=== PATIENT | female | born 1940 | race Caucasian/White ===

== ENCOUNTER 2021-08-28 20:16 | Emergency (ER) | payer OTHER, MEDICARE ==
[~2021-08-28] VITALS: Ht 162.6 cm; Wt 74.8 kg
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
--- NOTE | 2021-08-28 20:30 | NUR ---
Received patient to ER via EMS w/ c/o back pain and spasm which is chronic and normally relieved w/ a muscle relaxer but patient had a glass of wine and did not want to mix. Introduced self to patient, positioned for comfort. bed to low position sr up, continue to monitor. Patient resting quietly. No acute distress noted. Vital signs within normal range.
--- NOTE | 2021-08-28 20:30 | NUR ---
Patient to ER bed 2 to gown for evaluation. Side rails up. Report given to MEGAN FORD.
[2021-08-28 20:38] VITALS: BP_SYST 175
[2021-08-28] MEDS ORDERED: MORPHINE 4 MG INJ. 4 MG/ML VIAL IM ONE (21:15)
[2021-08-28] MEDS ORDERED: CYCLOBENZAPRINE HCL 10 MG TABLET (FLEXERIL) PO ONE (21:15)
[2021-08-28] MEDS ORDERED: LIDOCAINE PATCH 5% 1 EA TP SCH (21:15)
[2021-08-28 21:41] LABS: BASOPHILS # (AUTO) 0.1 K/uL (0.0-0.2); BASOPHILS % (AUTO) 0.6 % (0.0-2.0); EOSINOPHILS # (AUTO) 0.1 K/uL (0.0-0.4); EOSINOPHILS % (AUTO) 0.7 % (0.0-4.0); HEMATOCRIT 38.6 % (36-48); HEMOGLOBIN 13.1 g/dL (12.0-16.0); LYMPHOCYTES # (AUTO) 1.2 K/uL (1.0-5.5); MEAN CORPUSCULAR HEMOGLOBIN 31 pg (27-31); MEAN CORPUSCULAR HGB CONC 34 % (32-36); MEAN CORPUSCULAR VOLUME 92 fL (79.0-98.0); MONOCYTES # (AUTO) 0.7 K/uL (0.0-1.0); MONOCYTES % (AUTO) 7.7 % (1.7-9.3); NEUTROPHILS # (AUTO) 7.4 K/uL (1.8-7.7); PLATELET COUNT (AUTO) 233 K/uL (130-430); RED BLOOD CELL COUNT(AUTO) 4.22 MIL/uL (4.2-6.2); RED CELL DISTRIBUTION WIDTH 15.7 % (9.0-15.0); WHITE BLOOD COUNT (AUTO) 9.5 K/uL (4.8-10.8)
[2021-08-28] MEDS ORDERED: LIDOCAINE PATCH 5% 1 EA TP ONE (21:41)
--- NOTE | 2021-08-28 21:45 | NUR ---
Medicated w/ morphine 5mg im, flexeril 10mg po per MD orders. Will cont to monitor and observe for any adverse reaction. bed to low position sr up, continue to monitor.
[2021-08-28 22:16] LABS: ANION GAP 5 (5-15); CALCIUM 8.4 mg/dL (8.4-11.0); CHLORIDE 99 mmol/L (98-107); CREATININE 0.53 mg/dL (0.55-1.30); GLUCOSE 151 mg/dL (70-99); POTASSIUM 3.9 mmol/L (3.5-5.1); SODIUM SERUM 131 mmol/L (136-145); UREA NITROGEN, BLOOD 13 mg/dL (8-21)
[2021-08-28 22:26] LABS: ALANINE AMINOTRANSFERASE 27 U/L (12-78); ALBUMIN 3.4 g/dL (3.4-4.8); ASPARTATE AMINOTRANSFERASE 20 U/L (10-37); TOTAL BILIRUBIN 0.3 mg/dL (0.0-1.0)
--- NOTE | 2021-08-28 22:27 | NUR ---
Patient resting quietly. No acute distress noted. Vital signs within normal range.
[2021-08-28 22:44] LABS: BILIRUBIN,URINE NEGATIVE (NEGATIVE); BLOOD, URINE NEGATIVE (NEGATIVE); CLARITY/URINE CLEAR (CLEAR); COLOR,URINE YELLOW (YELLOW); GLUCOSE,URINE NEGATIVE (NEGATIVE); KETONES,URINE NEGATIVE (NEGATIVE); LEUKOCYTE ESTERASE ,URINE NEGATIVE (NEGATIVE); NITRITE, URINE NEGATIVE (NEGATIVE); PROTEIN URINE TRACE (NEGATIVE); UROBILINOGEN,URINE 0.2 (0.2-1.0)
--- NOTE | 2021-08-29 00:25 | NUR ---
Patient resting quietly. No acute distress noted. Vital signs within normal range. no neuro focal deficits noted. continue to monitor.
[2021-08-29] MEDS ORDERED: NAPR-688 PO (01:51)
[2021-08-29 02:02] VITALS: BP_SYST 166
--- NOTE | 2021-08-29 02:02 | NUR ---
Patient given written and verbal discharge instructions and verbalizes understanding. ER MD discussed with patient the results and treatment provided. Patient in stable condition. ID arm band removed. IV catheter removed intact and dressing applied, no active bleeding. patient educated on pain management and to follow up with PMD. Pain Scale . Opportunity for questions provided and answered. Medication side effect fact sheet provided.
== END 2021-08-29 02:02 | disposition home or self-care (01) ==
LOC: SED 20:16
DX: M54.50 Low back pain, unspecified (principal); I10 Essential (primary) hypertension; Z88.0 Allergy status to penicillin; Z88.2 Allergy status to sulfonamides; Z88.1 Allergy status to other antibiotic agents
CPT/HCPCS: 36415; 72131; 76376; 80053; 81003; 85025; 96372; 99284; J2270